=== PATIENT | male | born 1960 ===

== ENCOUNTER 2017-08-19 11:00 | Emergency (ER) | payer OTHER ==
[2017-08-19 12:13] VITALS: BP 133/90
[2017-08-19] MEDS ORDERED: Tetan/Diph/Pertus SYR(Tdap)* 0.5 ML SYR(BOOSTRIX) use SYR IM ONE (12:57)
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
[2017-08-19] MEDS ORDERED: Lidocaine 1% INJ* 10 MG/ML 30 ML SDV INJ ONE (13:16)
--- NOTE | 2017-08-19 13:21 | RAD ---
HISTORY: Left hand crush injury COMPARISONS: None VIEWS: 2, Frontal and lateral views of the left hand FINDINGS: BONE DENSITY: Normal. BONES: There is no displaced fracture. JOINTS: There is no arthropathy. ALIGNMENT: There is no dislocation. SOFT TISSUES: Unremarkable. OTHER FINDINGS: None. IMPRESSION: NO ACUTE OSSEOUS INJURY. IF SYMPTOMS PERSIST, RECOMMEND REPEAT IMAGING.
== END 2017-08-19 14:00 | disposition home or self-care (01) ==
LOC: UCCORT 11:00
DX: S67.195A Crushing injury of left ring finger, initial encounter (principal); W23.0XXA Caught, crushed, jammed, or pinched between moving objects, initial encounter; Y93.89 Activity, other specified; Y92.9 Unspecified place or not applicable; F17.200 Nicotine dependence, unspecified, uncomplicated
CPT/HCPCS: 12002; 90715; 99202; G0463

== ENCOUNTER 2017-08-31 14:05 | Emergency (ER) | payer OTHER ==
[2017-08-31 15:12] VITALS: BP 135/88
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
== END 2017-08-31 15:41 | disposition home or self-care (01) ==
LOC: UCCORT 14:05
DX: S61.215D Laceration without foreign body of left ring finger without damage to nail, subsequent encounter (principal); W45.8XXD Other foreign body or object entering through skin, subsequent encounter; Z87.891 Personal history of nicotine dependence